=== PATIENT | female | born 1965 | race Caucasian/White ===

== ENCOUNTER 2017-08-31 04:09 | Emergency (ER) | payer OTHER ==
[~2017-08-31] VITALS: Ht 154.9 cm; Wt 55.8 kg
[2017-08-31 04:21] VITALS: BP 132/56; PULSE 68; RESP 14; TEMP 97.8; O2SAT 97
[2017-08-31 04:30] VITALS: BP 173/56; PULSE 68; RESP 16; TEMP 97.8; O2SAT 97
[2017-08-31 05:00] VITALS: BP 120/66; PULSE 67; RESP 16; O2SAT 98
[2017-08-31 06:07] VITALS: BP 110/43; PULSE 60; RESP 16; O2SAT 98
[2017-08-31] MEDS ORDERED: MORPHINE SULFATE 8 MG/ML INJ IV PUSH ONE (06:30)
[2017-08-31] MEDS ORDERED: SODIUM CHLORIDE 0.9% FLUSH 10 ML FLUSH IVF PRN (06:30)
[2017-08-31] MEDS ORDERED: KETOROLAC TROMETHAMINE 30 MG/ML (IVP) VIAL IVP ONE (06:30)
[2017-08-31] MEDS ORDERED: PROCHLORPERAZINE INJ 10 MG/2 ML VIAL IVP ONE (06:30)
[2017-08-31] MEDS ORDERED: MAXA10TA2 PO (06:35)
[2017-08-31] MEDS ORDERED: WELLTAB39 PO (06:35)
[2017-08-31] MEDS ORDERED: BUTATAB6 PO (06:35)
[2017-08-31] MEDS ORDERED: TRAZ100T10 PO (06:35)
[2017-08-31] MEDS ORDERED: DIVA250ER PO (06:35)
[2017-08-31] MEDS ORDERED: LEVO50TA4 PO (06:35)
[2017-08-31] MEDS ORDERED: PROP60TA PO (06:35)
--- NOTE | 2017-08-31 06:43 | PD ---
HPI Chief Complaint: Headache Time Seen by Provider: 06:21 Travel History International Travel<30 days: No Contact w/Intl Traveler<30days: No Traveled to known affect area: No History of Present Illness HPI The patient is a 52-year-old female that has had a migraine headache for 30 years. She complains of the last 3 weeks of a headache on her left side but also globally, just worse on the left side. The headache is of gradual onset. She sees Dr. Hathaway for this headache, she just recently saw him and she is on propranolol, trazodone, Wellbutrin and thyroid replacement medicine for this. She does have photophobia/phonophobia. She denies any focal neurologic change. She denies any fever. She had a CAT scan of the head at the [facility] which apparently was normal. This was done less than a week ago. PFSH Past Medical History Influenza Vaccination: No ?: Not Past Surgical History Hysterectomy: Yes (Complete) Tonsillectomy: Yes Social History Alcohol Use: No (Occasional) Tobacco Use: No Substance Use: No Allergies-Medications (Allergen,Severity, Reaction): Coded Allergies: diphenhydramine (Verified Allergy, Intermediate, 08/31/17) Reported Meds & Prescriptions Reported Meds & Active Scripts Active Reported Ydmcerehue-Rjwjigpuxldea-Wamrferi 50-325-40 Mg Tab 1 Tab PO Q4H PRN Do not exceed 6 tablets/day. Depakote ER (Divalproex Sodium) 250 Mg Jabari 250 Mg PO DAILY Maxalt (Rizatriptan Benzoate) 10 Mg Tab 10 Mg PO DAILY Levothyroxine (Levothyroxine Sodium) 50 Mcg Tab 50 Mcg PO DAILY Propranolol (Propranolol HCl) 60 Mg Tab 60 Mg PO DAILY Wellbutrin Xl 24 HR (Bupropion HCl) 300 Mg Tab 300 Mg PO DAILY Trazodone (Trazodone HCl) 100 Mg Tablet 100 Mg PO HS Review of Systems Except as stated in HPI: all other systems reviewed are Neg Physical Exam Narrative GENERAL: The patient is alert, oriented 3 in moderate distress with her headache. SKIN: Focused skin assessment warm/dry. HEAD: Atraumatic. Normocephalic. EYES: Pupils equal and round. No scleral icterus. No injection or drainage. ENT: No nasal bleeding or discharge. Mucous membranes pink and moist. NECK: Trachea midline. No JVD. There is no meningismus and the patient can flex neck fully so that her chin touches her chest. She actually states that her headache pain is better when she flexes her neck. CARDIOVASCULAR: Regular rate and rhythm. No murmur appreciated. RESPIRATORY: No accessory muscle use. Clear to auscultation. Breath sounds equal bilaterally. GASTROINTESTINAL: Abdomen soft, non-tender, nondistended. Hepatic and splenic margins not palpable. MUSCULOSKELETAL: No obvious deformities. No clubbing. No cyanosis. No edema. NEUROLOGICAL: Awake and alert. No obvious cranial nerve deficits. Motor grossly within normal limits. Normal speech. PSYCHIATRIC: Appropriate mood and affect; insight and judgment normal. Data Data Last Documented VS Vital Signs Date Time Temp Pulse Resp B/P (MAP) Pulse Ox O2 Delivery O2 Flow Rate FiO2 08/31/17 07:15 98.1 64 16 120/68 (85) 98 Room Air Orders Orders Ecg Monitoring (08/31/17 06:21) Iv Access Insert/Monitor (08/31/17 06:21) Oximetry (08/31/17 06:21) Sodium Chloride 0.9% Flush (Ns Flush) (08/31/17 06:30) Ketorolac Inj (Toradol Inj) (08/31/17 06:30) Prochlorperazine Inj (Compazine Inj) (08/31/17 06:30) Morphine Inj (Morphine Inj) (08/31/17 06:30) Methylprednisolone So Succ Inj (Solumedr (08/31/17 06:45) MDM Medical Decision Making Medical Screen Exam Complete: Yes Emergency Medical Condition: Yes Medical Record Reviewed: Yes Interpretation(s) It is now 723 in the morning and the patient's headache is getting better. She feels comfortable following up with Dr. Hathaway on Saturday. She will given Percocet 5 for pain, #20. She has Phenergan at home for nausea. Differential Diagnosis Migraine headache, tension headache, tension/migraine combination headache, cluster headache, subarachnoid hemorrhage-unlikely Narrative Course It is now 0 728 and the patient states he feels much better and that sharp pain that was severe is gone. She feels comfortable going home and following up with Dr. Hathaway. Diagnosis Primary Impression: Migraine headache Med/Other Pt SpecificInfo: Prescription(s) given Scripts Oxycodone-Acetaminophen (Percocet) 5-325 mg Tab 1-2 TAB PO Q4H Y for PAIN, #20 TAB 0 Refills Prov: Ozzy Albarran MD 08/31/17 Disposition: 01 DISCHARGE HOME Condition: Stable Ozzy Albarran MD Aug 31, 2017 06:43
[2017-08-31] MEDS ORDERED: methylPREDNISolone SOD SUCC 125 MG/2 ML VIAL IV PUSH ONE (06:45)
[2017-08-31 07:13] VITALS: RESP 16; O2SAT 96
[2017-08-31 07:15] VITALS: BP 120/68; PULSE 64; RESP 16; TEMP 98.1; O2SAT 98
[2017-08-31] MEDS ORDERED: PERC5TAB12 PO (07:29)
== END 2017-08-31 07:52 | disposition home or self-care (01) ==
LOC: PHED 04:09
DX: G43.909 Migraine, unspecified, not intractable, without status migrainosus (principal)
CPT/HCPCS: 96374; 96375; 99284; J0780; J1885; J2270; J2930